=== PATIENT | male | born 1950 | race African-American/Black ===

== ENCOUNTER 2019-01-24 09:24 | Inpatient (IN) | payer SELFPAY ==
[2019-01-24 10:10] VITALS: BMI 33.3
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
[2019-01-24] MEDS ORDERED: BISMUTH SUBSALICYLATE 524 MG/30 ML UD PO PRN (11:36)
[2019-01-24] MEDS ORDERED: hydrOXYzine PAMOATE 25 MG CAPSULE (FP) PO PRN (11:36)
[2019-01-24] MEDS ORDERED: MAG HYDROX/AL HYDROX/SIMETH 30 ML UNIT-DOSE CUP PO PRN (11:36)
[2019-01-24] MEDS ORDERED: chlordiazePOXIDE HCL 25 MG CAPSULE PO PRN (11:36)
[2019-01-24] MEDS ORDERED: P-EPHED 60MG/TRIPROLIDI 2.5MG TABLET PO PRN (11:36)
[2019-01-24] MEDS ORDERED: guaiFENesin 200 MG/10 ML 10 ML UNIT-DOSE CUPS PO PRN (11:36)
[2019-01-24] MEDS ORDERED: METHOCARBAMOL 500 MG TABLET PO PRN (11:36)
[2019-01-24] MEDS ORDERED: MAGNESIUM CITRATE 300 ML BOTTLE PO PRN (11:36)
[2019-01-24] MEDS ORDERED: MENTHOL/PHENOL 1 EACH UD MM PRN (11:36)
[2019-01-24] MEDS ORDERED: ACETAMINOPHEN 325 MG TABLET (FP) PO PRN (11:36)
[2019-01-24] MEDS ORDERED: IBUPROFEN 400 MG TABLET (FP) PO PRN (11:36)
[2019-01-24] MEDS ORDERED: chlordiazePOXIDE HCL 25 MG CAPSULE PO ONE (12:30)
[2019-01-24] MEDS: MAGNESIUM HYDROX 2400MG/30ML ORAL SUSPENSION 30 ML CUP PO PRN (13:18)
[2019-01-24] MEDS: TOLNAFTATE 1% CREAM 15 GM TUBE TP SCH ×2 (13:18→22:22)
--- NOTE | 2019-01-24 16:28 | EKG ---
Test Reason : Blood Pressure : / mmHG Vent. Rate : 065 BPM Atrial Rate : 065 BPM P-R Int : 198 ms QRS Dur : 088 ms QT Int : 446 ms P-R-T Axes : 044 004 043 degrees QTc Int : 463 ms NORMAL SINUS RHYTHM NORMAL ECG NO PREVIOUS ECGS AVAILABLE Confirmed by TIN GUARDADO, LOLA ([id number]) on 01/24/2019 4:27:49 PM Referred By: Confirmed By:LOLA CASTLE MD
[2019-01-24] MEDS: chlordiazePOXIDE HCL 25 MG CAPSULE PO SCH ×2 (17:13→22:21)
[2019-01-24] MEDS: THIAMINE HCL 100 MG TABLET (FP) PO SCH (22:21)
[2019-01-24] MEDS: MELATONIN 5 MG TABLETS PO PRN (22:21)
[2019-01-25] MEDS: chlordiazePOXIDE HCL 25 MG CAPSULE PO SCH ×4 (06:17→22:02)
[2019-01-25] MEDS: PRENATAL VITAMINS W/ FOLIC ACID TABLET (FP) PO SCH (10:35)
[2019-01-25] MEDS: TOLNAFTATE 1% CREAM 15 GM TUBE TP SCH ×2 (10:35→22:03)
[2019-01-25] MEDS: MAGNESIUM HYDROX 2400MG/30ML ORAL SUSPENSION 30 ML CUP PO PRN (10:36)
[2019-01-25 11:00] LABS: HEMATOCRIT 30.8 % (35.4-49); HEMOGLOBIN 10.6 GM/dL (11.7-16.9); MCH 36.1 pg (25.7-33.7); MCHC 34.4 g/dl (32.0-35.9); MEAN PLT VOLUME 7.9 fl (7.5-11.1); PLATELET COUNT 225 K/MM3 (134-434); RBC 2.94 M/mm3 (4.00-5.60); RDW 13.3 % (11.9-15.9); WHITE BLOOD COUNT 2.7 K/mm3 (4.0-10.0)
[2019-01-25 11:33] LABS: ALBUMIN 2.7 g/dl (3.4-5.0); ALK PHOS 65 U/L (45-117); ANION GAP 5 MMOL/L (8-16); BILIRUBIN,TOTAL 0.6 mg/dL (0.2-1); BLOOD UREA NITROGEN 11 mg/dL (7-18); CALCIUM 8.4 mg/dL (8.5-10.1); CHLORIDE 107 mmol/L (98-107); CO2 29 mmol/L (21-32); CREATININE 0.4 mg/dL (0.55-1.3); GLUCOSE,RANDOM 86 mg/dL (74-106); POTASSIUM 3.7 mmol/L (3.5-5.1); SGOT/AST 52 U/L (15-37); SGPT/ALT 46 U/L (13-61); SODIUM 141 mmol/L (136-145)
--- NOTE | 2019-01-25 11:33 | PN ---
S CIWA - CIWA Score Nausea/Vomitin-Mild Nausea/No Vomiting Muscle Tremors: 4-Moderate,w/Arms Extend Anxiety: 3 Agitation: 2 Paroxysmal Sweats: 1-Minimal Palms Moist Orientation: 2-Disoriented Date<2 days Tacttile Disturbances: 0-None Auditory Disturbances: 0-None Visual Disturbances: 0-None Headache: 1-Very Mild CIWA-Ar Total Score: 14 S Progress Note (SOAP) Subjective: doing ok with librium protocol resting on bed hesitating to talk about alcohol misuse Objective: 01/25/19 11:34 Vital Signs Temperature 98.4 F 01/25/19 09:33 Pulse Rate 76 01/25/19 09:33 Respiratory Rate 18 01/25/19 09:33 Blood Pressure 131/68 01/25/19 09:33 O2 Sat by Pulse Oximetry (%) Laboratory Last Values WBC 2.7 K/mm3 (4.0-10.0) L 01/25/19 07:50 RBC 2.94 M/mm3 (4.00-5.60) L 01/25/19 07:50 Hgb 10.6 GM/dL (11.7-16.9) L 01/25/19 07:50 Hct 30.8 % (35.4-49) L 01/25/19 07:50 MCV 105.0 fl (80-96) H 01/25/19 07:50 MCH 36.1 pg (25.7-33.7) H 01/25/19 07:50 MCHC 34.4 g/dl (32.0-35.9) 01/25/19 07:50 RDW 13.3 % (11.9-15.9) 01/25/19 07:50 Plt Count 225 K/MM3 (134-434) 01/25/19 07:50 MPV 7.9 fl (7.5-11.1) 01/25/19 07:50 Sodium 141 mmol/L (136-145) 01/25/19 07:50 Potassium 3.7 mmol/L (3.5-5.1) 01/25/19 07:50 Chloride 107 mmol/L (98-107) 01/25/19 07:50 Carbon Dioxide 29 mmol/L (21-32) 01/25/19 07:50 Anion Gap 5 MMOL/L (8-16) L 01/25/19 07:50 BUN 11 mg/dL (7-18) 01/25/19 07:50 Creatinine 0.4 mg/dL (0.55-1.3) L 01/25/19 07:50 Creat Clearance w eGFR 215.22 (>60) 01/25/19 07:50 Random Glucose 86 mg/dL (74-106) 01/25/19 07:50 Calcium 8.4 mg/dL (8.5-10.1) L 01/25/19 07:50 Total Bilirubin 0.6 mg/dL (0.2-1) 01/25/19 07:50 AST 52 U/L (15-37) H 01/25/19 07:50 ALT 46 U/L (13-61) 01/25/19 07:50 Alkaline Phosphatase 65 U/L (45-117) 01/25/19 07:50 Total Protein 7.0 g/dl (6.4-8.2) 01/25/19 07:50 Albumin 2.7 g/dl (3.4-5.0) L 01/25/19 07:50 HIV 1&2 Antibody Screen Negative 01/25/19 07:50 HIV P24 Antigen Negative 01/25/19 07:50 low wbc repeat cbc lab noted 01/25/19 11:35 Assessment: 01/25/19 11:36 alcohol withdrawal sx Plan: continue detox
[2019-01-25] MEDS ORDERED: PNEUMOC 13-VAL CONJ-DIP CRM/PF 0.5 ML DISP.SYRIN IM ONE (13:30)
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
[2019-01-25] MEDS: MELATONIN 5 MG TABLETS PO PRN (22:02)
[2019-01-25] MEDS: THIAMINE HCL 100 MG TABLET (FP) PO SCH (22:02)
[2019-01-26] MEDS: chlordiazePOXIDE HCL 25 MG CAPSULE PO SCH ×2 (06:41→10:17)
[2019-01-26] MEDS: PRENATAL VITAMINS W/ FOLIC ACID TABLET (FP) PO SCH (10:17)
[2019-01-26 10:22] LABS: EOS % 5.2 % (0-4.5); HEMATOCRIT 34.4 % (35.4-49); HEMOGLOBIN 11.5 GM/dL (11.7-16.9); LYMPH % 26.3 % (8-40); MCH 35.5 pg (25.7-33.7); MCHC 33.4 g/dl (32.0-35.9); MEAN CELL VOLUME 106.3 fl (80-96); MEAN PLT VOLUME 8.3 fl (7.5-11.1); MONO % 18.5 % (3.8-10.2); PLATELET COUNT 229 K/MM3 (134-434); RBC 3.24 M/mm3 (4.00-5.60); RDW 13.8 % (11.9-15.9); WHITE BLOOD COUNT 3.3 K/mm3 (4.0-10.0)
[2019-01-26] MEDS: TOLNAFTATE 1% CREAM 15 GM TUBE TP SCH ×2 (10:27→23:11)
--- NOTE | 2019-01-26 11:36 | PN ---
S CIWA - CIWA Score Nausea/Vomitin-Mild Nausea/No Vomiting Muscle Tremors: 3 Anxiety: 2 Agitation: 2 Paroxysmal Sweats: 1-Minimal Palms Moist Orientation: 2-Disoriented Date<2 days Tacttile Disturbances: 0-None Auditory Disturbances: 0-None Visual Disturbances: 0-None Headache: 1-Very Mild CIWA-Ar Total Score: 12 BHS Progress Note (SOAP) Subjective: doing well with librum alcohol detox protocol feeling ok today tired Objective: 01/26/19 11:35 Vital Signs Temperature 96.9 F L 01/26/19 09:21 Pulse Rate 67 01/26/19 09:21 Respiratory Rate 18 01/26/19 09:21 Blood Pressure 120/69 01/26/19 09:21 O2 Sat by Pulse Oximetry (%) Laboratory Last Values WBC 3.3 K/mm3 (4.0-10.0) L 01/26/19 07:00 RBC 3.24 M/mm3 (4.00-5.60) L 01/26/19 07:00 Hgb 11.5 GM/dL (11.7-16.9) L 01/26/19 07:00 Hct 34.4 % (35.4-49) L 01/26/19 07:00 MCV 106.3 fl (80-96) H 01/26/19 07:00 MCH 35.5 pg (25.7-33.7) H 01/26/19 07:00 MCHC 33.4 g/dl (32.0-35.9) 01/26/19 07:00 RDW 13.8 % (11.9-15.9) 01/26/19 07:00 Plt Count 229 K/MM3 (134-434) 01/26/19 07:00 MPV 8.3 fl (7.5-11.1) 01/26/19 07:00 Absolute Neuts (auto) 1.6 K/mm3 (1.5-8.0) 01/26/19 07:00 Neutrophils % 49.0 % (42.8-82.8) 01/26/19 07:00 Lymphocytes % 26.3 % (8-40) 01/26/19 07:00 Monocytes % 18.5 % (3.8-10.2) H 01/26/19 07:00 Eosinophils % 5.2 % (0-4.5) H 01/26/19 07:00 Basophils % 1.0 % (0-2.0) 01/26/19 07:00 Nucleated RBC % 0 % (0-0) 01/26/19 07:00 Sodium 141 mmol/L (136-145) 01/25/19 07:50 Potassium 3.7 mmol/L (3.5-5.1) 01/25/19 07:50 Chloride 107 mmol/L (98-107) 01/25/19 07:50 Carbon Dioxide 29 mmol/L (21-32) 01/25/19 07:50 Anion Gap 5 MMOL/L (8-16) L 01/25/19 07:50 BUN 11 mg/dL (7-18) 01/25/19 07:50 Creatinine 0.4 mg/dL (0.55-1.3) L 01/25/19 07:50 Creat Clearance w eGFR 215.22 (>60) 01/25/19 07:50 POC Glucometer 104 UNITS (80-120) 01/24/19 11:41 Random Glucose 86 mg/dL (74-106) 01/25/19 07:50 Calcium 8.4 mg/dL (8.5-10.1) L 01/25/19 07:50 Total Bilirubin 0.6 mg/dL (0.2-1) 01/25/19 07:50 AST 52 U/L (15-37) H 01/25/19 07:50 ALT 46 U/L (13-61) 01/25/19 07:50 Alkaline Phosphatase 65 U/L (45-117) 01/25/19 07:50 Total Protein 7.0 g/dl (6.4-8.2) 01/25/19 07:50 Albumin 2.7 g/dl (3.4-5.0) L 01/25/19 07:50 RPR Titer Nonreactive (NONREACTIVE) 01/25/19 07:50 HIV 1&2 Antibody Screen Negative 01/25/19 07:50 HIV P24 Antigen Negative 01/25/19 07:50 lab noted Assessment: 01/26/19 11:35 alcohol withdrawal sx Plan: continue detox
[2019-01-26 15:25] LABS: MACROCYTOSIS 1+
[2019-01-26] MEDS ORDERED: chlordiazePOXIDE HCL 10 MG CAPSULE PO PRN (17:00)
[2019-01-26] MEDS: chlordiazePOXIDE HCL 10 MG CAPSULE PO SCH ×2 (17:21→23:12)
[2019-01-26] MEDS: THIAMINE HCL 100 MG TABLET (FP) PO SCH (23:12)
[2019-01-27] MEDS: chlordiazePOXIDE HCL 10 MG CAPSULE PO SCH (05:55)
[2019-01-27 09:09] VITALS: BP 128/83; PULSE 74; TEMP 96.6
--- NOTE | 2019-01-27 09:55 | DS ---
[facility] Detox Discharge Summary Admission Date: 01/24/19 Discharge Date: 01/27/19 - History Present History: Alcohol Dependence Additional Comments: 68 years old male admitted on 01/24/19 for alcohol withdrawal stabilization completed detox regimen aftercare community self help support group Pertinent Past History: bring in medication list and lab report to aftercare appointment - Physical Exam Results Vital Signs: Vital Signs Temperature 96.6 F L 01/27/19 09:08 Pulse Rate 74 01/27/19 09:08 Respiratory Rate 16 01/27/19 09:08 Blood Pressure 128/83 01/27/19 09:08 O2 Sat by Pulse Oximetry (%) Pertinent Admission Physical Exam Findings: alcohol withdrawal sx Laboratory Last Values WBC 3.3 K/mm3 (4.0-10.0) L 01/26/19 07:00 RBC 3.24 M/mm3 (4.00-5.60) L 01/26/19 07:00 Hgb 11.5 GM/dL (11.7-16.9) L 01/26/19 07:00 Hct 34.4 % (35.4-49) L 01/26/19 07:00 MCV 106.3 fl (80-96) H 01/26/19 07:00 MCH 35.5 pg (25.7-33.7) H 01/26/19 07:00 MCHC 33.4 g/dl (32.0-35.9) 01/26/19 07:00 RDW 13.8 % (11.9-15.9) 01/26/19 07:00 Plt Count 229 K/MM3 (134-434) 01/26/19 07:00 MPV 8.3 fl (7.5-11.1) 01/26/19 07:00 Absolute Neuts (auto) 1.6 K/mm3 (1.5-8.0) 01/26/19 07:00 Neutrophils % 49.0 % (42.8-82.8) 01/26/19 07:00 Lymphocytes % 26.3 % (8-40) 01/26/19 07:00 Monocytes % 18.5 % (3.8-10.2) H 01/26/19 07:00 Eosinophils % 5.2 % (0-4.5) H 01/26/19 07:00 Basophils % 1.0 % (0-2.0) 01/26/19 07:00 Nucleated RBC % 0 % (0-0) 01/26/19 07:00 Macrocytosis 1+ 01/26/19 07:00 Sodium 141 mmol/L (136-145) 01/25/19 07:50 Potassium 3.7 mmol/L (3.5-5.1) 01/25/19 07:50 Chloride 107 mmol/L (98-107) 01/25/19 07:50 Carbon Dioxide 29 mmol/L (21-32) 01/25/19 07:50 Anion Gap 5 MMOL/L (8-16) L 01/25/19 07:50 BUN 11 mg/dL (7-18) 01/25/19 07:50 Creatinine 0.4 mg/dL (0.55-1.3) L 01/25/19 07:50 Creat Clearance w eGFR 215.22 (>60) 01/25/19 07:50 POC Glucometer 104 UNITS (80-120) 01/24/19 11:41 Random Glucose 86 mg/dL (74-106) 01/25/19 07:50 Calcium 8.4 mg/dL (8.5-10.1) L 01/25/19 07:50 Total Bilirubin 0.6 mg/dL (0.2-1) 01/25/19 07:50 AST 52 U/L (15-37) H 01/25/19 07:50 ALT 46 U/L (13-61) 01/25/19 07:50 Alkaline Phosphatase 65 U/L (45-117) 01/25/19 07:50 Total Protein 7.0 g/dl (6.4-8.2) 01/25/19 07:50 Albumin 2.7 g/dl (3.4-5.0) L 01/25/19 07:50 RPR Titer Nonreactive (NONREACTIVE) 01/25/19 07:50 HIV 1&2 Antibody Screen Negative 01/25/19 07:50 HIV P24 Antigen Negative 01/25/19 07:50 lab noted - Treatment Hospital Course: Detox Protocol Followed, Detoxed Safely, Responded well, Discharged Condition Good, Rehab Referral Accepted Patient has Accepted a Rehab Referral to: community self help support group - Medication Discharge Medications: Ambulatory Orders NK [No Known Home Medication] 01/24/19 - Diagnosis (1) Alcohol dependence with uncomplicated withdrawal Status: Acute (2) HTN (hypertension) Status: Chronic Qualifiers: Hypertension type: essential hypertension Qualified Code(s): I10 - Essential (primary) hypertension (3) Hepatitis C Status: Chronic Qualifiers: Viral hepatitis chronicity: unspecified Hepatic coma status: without hepatic coma Qualified Code(s): B19.20 - Unspecified viral hepatitis C without hepatic coma (4) Type 2 diabetes mellitus Status: Chronic Qualifiers: Diabetes mellitus termite treater insulin use: unspecified termite treater insulin use status Diabetes mellitus complication status: with unspecified complications Qualified Code(s): E11.8 - Type 2 diabetes mellitus with unspecified complications - AMA Did Patient Leave Against Medical Advice: No
[2019-01-27] MEDS ORDERED: chlordiazePOXIDE HCL 10 MG CAPSULE PO SCH (17:00)
== END 2019-01-27 09:20 | disposition home or self-care (01) | DRG 775 ==
LOC: YASAS 09:24 → Y3N 12:06
PROVIDERS: ADMIT Surgery; ATTEND Surgery
PROC: HZ2ZZZZ Detoxification Services for Substance Abuse Treatment (ICD-10-PCS; principal; 2019-01-24)
DX: F10.230 Alcohol dependence with withdrawal, uncomplicated (principal); F12.10 Cannabis abuse, uncomplicated; F10.280 Alcohol dependence with alcohol-induced anxiety disorder; I10 Essential (primary) hypertension; M79.18 Myalgia, other site; E11.9 Type 2 diabetes mellitus without complications; Z79.4 Long term (current) use of insulin; R55 Syncope and collapse; B18.2 Chronic viral hepatitis C; Z85.49 Personal history of malignant neoplasm of other male genital organs; E66.9 Obesity, unspecified; Z68.33 Body mass index [BMI] 33.0-33.9, adult; Z91.013 Allergy to seafood
CPT/HCPCS: 36415; 80053; 82962; 85025; 85027; 86593; 87389; 90670; 93005; 93010